=== PATIENT | female | born 1995 | race Caucasian/White ===

== ENCOUNTER 2019-05-20 02:12 | Emergency (ER) | payer SELFPAY ==
[~2019-05-20] VITALS: Ht 165.1 cm; Wt 120.0 kg
[2019-05-20] MEDS ORDERED: TETANUS, DIPHTHERIA, PERTUSSIS VAC/PF 0.5ML (>7YR OLD) IM ONE (03:00)
[2019-05-20] MEDS ORDERED: KETOROLAC 60MG/2ML VIAL IM ONE (03:00)
[2019-05-20] MEDS ORDERED: BACITRACIN ZINC OINT UDPKT TOP ONE (04:15)
[2019-05-20] MEDS ORDERED: LIDOCAINE HCL/PF 1% 10 MG/ML 5ML VIAL IJ ONE (04:15)
[2019-05-20 05:54] VITALS: BP 140/73
== END 2019-05-20 05:58 | disposition left against medical advice (07) ==
LOC: ER 03:08
DX: S91.312A Laceration without foreign body, left foot, initial encounter (principal); S91.311A Laceration without foreign body, right foot, initial encounter; W25.XXXA Contact with sharp glass, initial encounter; Y93.89 Activity, other specified; Y92.89 Other specified places as the place of occurrence of the external cause; Y99.8 Other external cause status
CPT/HCPCS: 12002; 73630; 90471; 90715; 96372; 99284; J1885; J3490; Z7610

== ENCOUNTER 2019-05-23 15:15 | Emergency (ER) | payer SELFPAY ==
[~2019-05-23] VITALS: Ht 165.1 cm; Wt 120.0 kg
[2019-05-23 16:11] VITALS: BP 121/77
== END 2019-05-23 17:22 | disposition home or self-care (01) ==
LOC: ER 15:15
DX: Z48.00 Encounter for change or removal of nonsurgical wound dressing (principal)
CPT/HCPCS: 99283

== ENCOUNTER 2019-05-30 17:21 | Emergency (ER) | payer SELFPAY ==
[~2019-05-30] VITALS: Ht 165.1 cm; Wt 113.0 kg
[2019-05-30 17:22] VITALS: BP 133/86
== END 2019-05-30 18:00 | disposition home or self-care (01) ==
LOC: ER 17:21
DX: Z48.02 Encounter for removal of sutures (principal)
CPT/HCPCS: 99283; Z7610